=== PATIENT | male | born 1975 | race Caucasian/White ===

== ENCOUNTER 2020-03-20 20:13 | Emergency (ER) | payer OTHER ==
--- NOTE | 2020-03-20 20:49 | EDM.PDOC ---
ED HPI GENERAL MEDICAL PROBLEM - General Chief Complaint: Drug or Alcohol Abuse Stated Complaint: MEDICAL CLEARENCE Time Seen by Provider: 03/20/20 20:27 Source of Information: Reports: Patient, Police, RN Notes Reviewed History Limitations: Reports: No Limitations - History of Present Illness INITIAL COMMENTS - FREE TEXT/NARRATIVE: Patient is a 44-year-old male who presents to the ED with [place] police, for a medical clearance exam. Patient states he had been drinking beer, and driving his vehicle. He states that his car ran out of gas, and he ended up calling 911 for help. He did confess to the police officers that he had been drinking, and he did ultimately take a roadside breathalyzer test, but was brought to the ER for further evaluation. Patient states he knows he has made some bad decisions, and he does admit to being an alcoholic. He does go to , and he was making progress, but his grandfather about 2 weeks ago, and he says he is having a rough time with that. The patient notes that he has had and up to 10- month period of being sober. He is from [place], and was try to get back to that area to his family. He is not suicidal, he is not having any sick-like symptoms, fever/chills, cough/shortness of breath, nausea/vomiting/diarrhea. - Related Data Allergies Allergy/AdvReac Type Severity Reaction Status Date / Time No Known Allergies Allergy Verified 03/20/20 20:26 Home Meds: Home Meds Sertraline [Zoloft] 100 mg PO DAILY 03/20/20 [History] Past Medical History Psychiatric History: Reports: Addiction, Anxiety, Depression ED ROS GENERAL - Review of Systems Review Of Systems: Comprehensive ROS is negative, except as noted in HPI. ED EXAM, GENERAL - Physical Exam Exam: See Below Exam Limited By: No Limitations (pt is intoxicated, but appropirately answering questions and cooperative) General Appearance: Alert, WD/WN, No Apparent Distress Eye Exam: Bilateral Eye: EOMI, Normal Inspection, PERRL Throat/Mouth: Normal Inspection, Normal Lips, Normal Teeth, Normal Gums, Normal Oropharynx, Normal Voice, No Airway Compromise Head: Atraumatic, Normocephalic Neck: Normal Inspection Respiratory/Chest: No Respiratory Distress, Lungs Clear, Normal Breath Sounds, No Accessory Muscle Use, Chest Non-Tender Cardiovascular: Normal Peripheral Pulses, Regular Rate, Rhythm, No Murmur Peripheral Pulses: 2+: Radial (L), Radial (R) Extremities: Normal Inspection, Normal Capillary Refill Neurological: Alert, Oriented, Normal Cognition, No Motor/Sensory Deficits Psychiatric: Normal Affect, Normal Mood Skin Exam: Warm, Dry, Intact, Normal Color, No Rash Course - Vital Signs Last Recorded V/S: Last Vital Signs Temp 99 F 03/20/20 20:54 Pulse 90 03/20/20 20:54 Resp 16 03/20/20 20:54 BP 126/97 H 03/20/20 20:54 Pulse Ox 95 03/20/20 20:54 - Re-Assessments/Exams Free Text/Narrative Re-Assessment/Exam: 03/20/20 20:48 Patient presents to the ED via [place] [employer] department for medical clearance. Patient was evaluated, and is under the influence of alcohol however they are able to walk and talk appropriately, there were no emergency conditions noted at today's visit. They are deemed not a harm to themselves or others at this time. It is my opinion that they are medically cleared to go to the local law enforcement center to get sober overnight. Departure - Departure Time of Disposition: 20:48 Disposition: Home, Self-Care 01 Condition: Good Clinical Impression: Alcohol intoxication Qualifiers: Complication of substance-induced condition: uncomplicated Qualified Code(s): F10.920 - Alcohol use, unspecified with intoxication, uncomplicated - Discharge Information *PRESCRIPTION DRUG MONITORING PROGRAM REVIEWED*: No *COPY OF PRESCRIPTION DRUG MONITORING REPORT IN PATIENT MILAD: No Instructions: Alcohol Intoxication, [id number], Finding Treatment for Addiction Referrals: PCP,None [Primary Care Provider] - Forms: ED Department Discharge Additional Instructions: You were evaluated in the ER tonight for your alcohol intoxication. You had a thorough medical exam performed, and although you are intoxicated, no emergent medical needs were identified on today's exam, and you are medically cleared to go to alf to sober up. Please return to the ER at any time if symptoms change or worsen. Sepsis Event Note (ED) - Focused Exam Vital Signs: Vital Signs Temp Pulse Resp BP Pulse Ox 03/20/20 20:54 99 F 90 16 126/97 H 95
== END 2020-03-20 21:33 | disposition home or self-care (01) ==
LOC: JD.ED 20:13
DX: F10.120 Alcohol abuse with intoxication, uncomplicated (principal); F41.9 Anxiety disorder, unspecified; F32.9 Major depressive disorder, single episode, unspecified; Z79.899 Other long term (current) drug therapy
CPT/HCPCS: 99283; 99284